=== PATIENT | female | born 1955 | race African-American/Black ===

== ENCOUNTER 2019-08-15 17:43 | Emergency (ER) | payer SELFPAY ==
[2019-08-15] MEDS ORDERED: Sulfameth/Trimethoprim DS 800-160mg TAB ONE (19:12)
[2019-08-15] MEDS ORDERED: Acetaminophen 500 MG TAB ONE (19:12)
== END 2019-08-15 19:22 | disposition home or self-care (01) ==
LOC: MADERS 17:43
DX: L02.31 Cutaneous abscess of buttock (principal); E11.9 Type 2 diabetes mellitus without complications; E78.5 Hyperlipidemia, unspecified; I10 Essential (primary) hypertension; E05.90 Thyrotoxicosis, unspecified without thyrotoxic crisis or storm; Z79.4 Long term (current) use of insulin; Z79.899 Other long term (current) drug therapy
CPT/HCPCS: 10060

== ENCOUNTER 2019-12-29 16:35 | Emergency (ER) | payer MEDICARE, SELFPAY ==
[2019-12-29] MEDS ORDERED: Lidocaine 1% w/Epinephrine 1:100K 20 ML VIAL ONE (17:18)
[2019-12-29] MEDS ORDERED: Amoxicillin/Potassium Clav 875 MG TAB ONE (17:46)
== END 2019-12-29 17:55 | disposition home or self-care (01) ==
LOC: MADERS 16:35
DX: L02.31 Cutaneous abscess of buttock (principal); E11.9 Type 2 diabetes mellitus without complications; E05.90 Thyrotoxicosis, unspecified without thyrotoxic crisis or storm; E78.5 Hyperlipidemia, unspecified; I10 Essential (primary) hypertension; Z79.4 Long term (current) use of insulin; Z79.899 Other long term (current) drug therapy
CPT/HCPCS: 46050

== ENCOUNTER 2020-06-14 15:56 | Outpatient (CLI) | payer MEDICARE ==
--- NOTE | 2020-06-14 16:32 | RAD ---
Lumbar spine 3 views HISTORY: Back pain with radiculopathy. FINDINGS: There are 5 lumbar type vertebrae. Pedicles are intact. Vertebral body heights and alignmen t are maintained. Prominent osteophytosis throughout the facets of the lumbar spine and the vertebral bodies of the tho racolumbar spine. Degenerative changes sacroiliac joints are also evident. Oval areas of dystrophic calcification projecting over the lower pelvis correlates with those seen po sterior to the uterus on CT from 05/07/2020. IMPRESSION : Degenerative changes lumbar spine. No acute osseous abnormalities are demonstrated.
[2020-06-14 20:30] LABS: #Basophils 0.1 thou/uL (0.0-0.2); #Lymphocytes 3.1 thou/uL (1.20-3.40); #Monocytes 0.6 thou/uL (0.11-0.59); #Neutrophils 2.9 thou/uL (1.40-6.50); %Basophils 1.3 % (0.0-1.0); %Eosinophils 0.6 % (0.0-10.0); %Lymphocytes 46.1 % (21.0-51.0); %Monocytes 8.7 % (0.0-10.0); %Neutrophils 43.5 % (42.0-75.0); Hemoglobin 14.8 g/dL (12.0-16.0); Mean Corpuscular HGB CONC 34.3 g/dL (32.0-36.0); Mean Corpuscular Hemoglobin 30.4 pg (27.0-31.0); Mean Corpuscular Volume 88.6 fL (78.0-98.0); Mean Platelet Volume 8.5 fL (7.4-10.4); Platelet Count 203 thou/uL (130-400); RBC Distribution Width 13.7 % (11.5-14.5); Red Blood Cell (RBC) Count 4.88 mill/uL (4.20-5.40); White Blood Cell (WBC) Count 6.7 thou/uL (4.8-10.8)
[2020-06-14 20:31] LABS: Bacteria/HPF None Seen HPF (None Seen); Bilirubin 1+ (Negative); Blood, Urine Negative (Negative); Clarity Turbid (Clear); Glucose, Urine (Dipstick) Normal (Negative); Ketone, Urine 60 mg/dL (Negative); Leukocyte 25 Leu/uL (Negative); Mucous/LPF 2+ LPF (<2+); Nitrite Negative (Negative); Protein, Urine (Dipstick) 70 mg/dL (Neg-Trace); RBC/HPF 0-3 HPF (0-3); Specific Gravity, Urine 1.028 (1.002-1.036); Urobilinogen 3 mg/dL (Less than 2); pH, Urine 5.5 (5.0-9.0)
[2020-06-14 20:33] LABS: Calcium Oxalate Crystals 2+ HPF (None Seen)
[2020-06-14 21:21] LABS: ALT (SGPT) 20 U/L (8-55); AST (SGOT) 15 U/L (5-34); Albumin 3.9 g/dL (3.4-4.8); Alkaline Phosphatase 74 U/L (40-110); Anion Gap 24 mmol/L (10-20); BUN (Urea Nitrogen) 15 mg/dL (9.8-20.1); Bilirubin, Total 1.1 mg/dL (0.2-1.2); Calc. Creatinine Clearance 0 mL/min (70-130); Calcium 9.9 mg/dL (7.8-10.44); Carbon Dioxide 18 mmol/L (23-31); Chloride 95 mmol/L (98-107); Globulin 3.6 g/dL (2.4-3.5); Glucose 196 mg/dL (80-115); Potassium 3.5 mmol/L (3.5-5.1); Protein, Total 7.5 g/dL (6.0-8.3); Sodium 133 mmol/L (136-145)
== END 2020-06-14 15:57 | disposition home or self-care (01) ==
LOC: MADRAD 15:56
PROVIDERS: ATTEND Family Medicine
DX: K29.00 Acute gastritis without bleeding (principal); R00.0 Tachycardia, unspecified; M47.816 Spondylosis without myelopathy or radiculopathy, lumbar region
CPT/HCPCS: 36415; 72100; 80053; 81001; 84443; 85025; 87086; 93005; 93010

== ENCOUNTER 2020-06-30 10:55 | Emergency (ER) | payer MEDICARE ==
[2020-06-30] MEDS ORDERED: Sodium Chloride 0.9% 2,000 ML ONE (11:27)
[2020-06-30 11:44] LABS: #Basophils 0.1 thou/uL (0.0-0.2); #Lymphocytes 2.5 thou/uL (1.20-3.40); #Monocytes 0.6 thou/uL (0.11-0.59); #Neutrophils 2.3 thou/uL (1.40-6.50); %Basophils 2.2 % (0.0-1.0); %Eosinophils 0.7 % (0.0-10.0); %Lymphocytes 44.6 % (21.0-51.0); %Monocytes 11.1 % (0.0-10.0); %Neutrophils 41.5 % (42.0-75.0); Hemoglobin 13.8 g/dL (12.0-16.0); Mean Corpuscular HGB CONC 31.9 g/dL (32.0-36.0); Mean Corpuscular Hemoglobin 28.2 pg (27.0-31.0); Mean Corpuscular Volume 88.3 fL (78.0-98.0); Mean Platelet Volume 7.8 fL (7.4-10.4); Platelet Count 204 thou/uL (130-400); RBC Distribution Width 13.6 % (11.5-14.5); Red Blood Cell (RBC) Count 4.89 mill/uL (4.20-5.40); White Blood Cell (WBC) Count 5.6 thou/uL (4.8-10.8)
[2020-06-30 12:21] LABS: BUN (Urea Nitrogen) 8 mg/dL (9.8-20.1); Calc. Creatinine Clearance 0 mL/min (70-130); Carbon Dioxide 20 mmol/L (23-31); Chloride 95 mmol/L (98-107); Glucose 111 mg/dL (80-115); Sodium 133 mmol/L (136-145)
[2020-06-30 12:25] LABS: Albumin 3.8 g/dL (3.4-4.8); Bilirubin, Total 1.1 mg/dL (0.2-1.2); Calcium 9.3 mg/dL (7.8-10.44)
[2020-06-30 12:26] LABS: Alkaline Phosphatase 53 U/L (40-110)
[2020-06-30 12:30] LABS: Anion Gap 21 mmol/L (10-20); Potassium 3.3 mmol/L (3.5-5.1)
[2020-06-30 12:31] LABS: ALT (SGPT) 21 U/L (8-55); Globulin 3.3 g/dL (2.4-3.5); Protein, Total 7.1 g/dL (5.8-8.1)
[2020-06-30 12:34] LABS: AST (SGOT) 21 U/L (5-34)
[2020-06-30] MEDS ORDERED: Potassium Chloride 10 MEQ TAB ONE (13:03)
== END 2020-06-30 13:12 | disposition home or self-care (01) ==
LOC: MADERS 10:55
DX: E86.0 Dehydration (principal); E86.1 Hypovolemia; R10.84 Generalized abdominal pain; E11.9 Type 2 diabetes mellitus without complications; E78.5 Hyperlipidemia, unspecified; I10 Essential (primary) hypertension
CPT/HCPCS: 80053; 85025; 99284; J7050

== ENCOUNTER 2020-07-18 20:17 | Emergency (ER) | payer MEDICARE ==
[2020-07-18] MEDS ORDERED: Sodium Chloride 0.9% 1,000 ML ONE ×2 (21:39→22:59)
[2020-07-18 21:54] LABS: #Basophils 0.2 thou/uL (0.0-0.2); #Eosinphils 0.1 thou/uL (0.0-0.7); #Lymphocytes 2.6 thou/uL (1.20-3.40); #Monocytes 0.7 thou/uL (0.11-0.59); #Neutrophils 2.7 thou/uL (1.40-6.50); %Basophils 2.5 % (0.0-1.0); %Eosinophils 0.9 % (0.0-10.0); %Lymphocytes 41.9 % (21.0-51.0); %Monocytes 10.9 % (0.0-10.0); %Neutrophils 43.8 % (42.0-75.0); Hemoglobin 14.5 g/dL (12.0-16.0); Mean Corpuscular HGB CONC 32.4 g/dL (32.0-36.0); Mean Corpuscular Hemoglobin 28.4 pg (27.0-31.0); Mean Corpuscular Volume 87.7 fL (78.0-98.0); Mean Platelet Volume 7.7 fL (7.4-10.4); Platelet Count 215 thou/uL (130-400); RBC Distribution Width 14.2 % (11.5-14.5); Red Blood Cell (RBC) Count 5.09 mill/uL (4.20-5.40); White Blood Cell (WBC) Count 6.2 thou/uL (4.8-10.8)
[2020-07-18 23:14] LABS: ALT (SGPT) 25 U/L (8-55); AST (SGOT) 25 U/L (5-34); Albumin 3.9 g/dL (3.4-4.8); Alkaline Phosphatase 63 U/L (40-110); Anion Gap 23 mmol/L (10-20); BUN (Urea Nitrogen) 7 mg/dL (9.8-20.1); Bilirubin, Total 0.8 mg/dL (0.2-1.2); Calc. Creatinine Clearance 0 mL/min (70-130); Calcium 10.2 mg/dL (7.8-10.44); Carbon Dioxide 20 mmol/L (23-31); Chloride 98 mmol/L (98-107); Globulin 3.8 g/dL (2.4-3.5); Glucose 181 mg/dL (80-115); Lipase 13 U/L (8-78); Protein, Total 7.7 g/dL (6.0-8.3); Sodium 138 mmol/L (136-145)
[2020-07-18 23:23] LABS: Potassium 2.9 mmol/L (3.5-5.1)
[2020-07-19] MEDS ORDERED: Sodium Chloride 0.9% 1,000 ML ONE (00:02)
[2020-07-19] MEDS ORDERED: Potassium Chloride 10 MEQ TAB ONE (00:03)
[2020-07-19] MEDS ORDERED: Potassium Chloride 10 MEQ/100 ML PREMIX BAG ONE (00:03)
[2020-07-19 00:25] LABS: ALT (SGPT) 22 U/L (8-55); AST (SGOT) 20 U/L (5-34); Albumin 3.7 g/dL (3.4-4.8); Alkaline Phosphatase 58 U/L (40-110); Anion Gap 19 mmol/L (10-20); BUN (Urea Nitrogen) 6 mg/dL (9.8-20.1); Bilirubin, Total 0.8 mg/dL (0.2-1.2); Calc. Creatinine Clearance 0 mL/min (70-130); Calcium 9.3 mg/dL (7.8-10.44); Carbon Dioxide 21 mmol/L (23-31); Chloride 103 mmol/L (98-107); Globulin 3.4 g/dL (2.4-3.5); Glucose 135 mg/dL (80-115); Protein, Total 7.1 g/dL (6.0-8.3); Sodium 140 mmol/L (136-145)
[2020-07-19 00:30] LABS: Clarity Clear (Clear); Specific Gravity, Urine 1.017 (1.002-1.036); pH, Urine 5.5 (5.0-9.0)
[2020-07-19 00:31] LABS: Glucose, Urine (Dipstick) Negative (Negative); Ketone, Urine 40 mg/dL (Negative); Leukocyte Negative (Negative); Nitrite Negative (Negative); Protein, Urine (Dipstick) 30 mg/dL (Neg-Trace); Urobilinogen 0.2 mg/dL (Less than 2)
[2020-07-19 00:32] LABS: Bilirubin Large (Negative); Blood, Urine Negative (Negative)
[2020-07-19 00:35] LABS: Potassium 2.8 mmol/L (3.5-5.1)
[2020-07-19 00:39] LABS: Mucous/LPF 1+ LPF (<2+); RBC/HPF 0-3 HPF (0-3); Squamous Epithelial 0-3 HPF (0-3); WBC/HPF 0-3 HPF (0-3)
== END 2020-07-19 00:52 | disposition short-term general hospital (02) ==
LOC: MADERS 20:17
DX: E11.65 Type 2 diabetes mellitus with hyperglycemia (principal); E78.5 Hyperlipidemia, unspecified; I10 Essential (primary) hypertension; E87.6 Hypokalemia; R00.0 Tachycardia, unspecified; E03.9 Hypothyroidism, unspecified
CPT/HCPCS: 71045; 80053; 81003; 81015; 83605; 83690; 84443; 84484; 85025; 93005; 96365; J3480; J7050

== ENCOUNTER 2020-08-08 18:24 | Emergency (ER) | payer MEDICARE ==
[2020-08-08] MEDS ORDERED: Sodium Chloride 0.9% 2,000 ML ONE (19:15)
[2020-08-08 19:37] LABS: #Basophils 0.2 thou/uL (0.0-0.2); #Eosinphils 0.1 thou/uL (0.0-0.7); #Lymphocytes 2.6 thou/uL (1.20-3.40); #Monocytes 0.9 thou/uL (0.11-0.59); %Basophils 2.4 % (0.0-1.0); %Eosinophils 0.9 % (0.0-10.0); %Lymphocytes 34.1 % (21.0-51.0); %Monocytes 11.4 % (0.0-10.0); %Neutrophils 51.2 % (42.0-75.0); Hemoglobin 13.1 g/dL (12.0-16.0); Mean Corpuscular HGB CONC 31.4 g/dL (32.0-36.0); Mean Corpuscular Hemoglobin 28.2 pg (27.0-31.0); Mean Corpuscular Volume 89.7 fL (78.0-98.0); Mean Platelet Volume 7.4 fL (7.4-10.4); Platelet Count 225 thou/uL (130-400); RBC Distribution Width 14.6 % (11.5-14.5); Red Blood Cell (RBC) Count 4.65 mill/uL (4.20-5.40); White Blood Cell (WBC) Count 7.7 thou/uL (4.8-10.8)
[2020-08-08 19:49] LABS: ALT (SGPT) 17 U/L (8-55); AST (SGOT) 17 U/L (5-34); Albumin 3.6 g/dL (3.4-4.8); Alkaline Phosphatase 61 U/L (40-110); Anion Gap 18 mmol/L (10-20); BUN (Urea Nitrogen) 12 mg/dL (9.8-20.1); Calc. Creatinine Clearance 0 mL/min (70-130); Calcium 9.5 mg/dL (7.8-10.44); Carbon Dioxide 24 mmol/L (23-31); Chloride 101 mmol/L (98-107); Globulin 3.5 g/dL (2.4-3.5); Glucose 173 mg/dL (80-115); Magnesium 1.6 mg/dL (1.6-2.6); Potassium 3.5 mmol/L (3.5-5.1); Protein, Total 7.1 g/dL (5.8-8.1); Sodium 139 mmol/L (136-145)
== END 2020-08-08 20:35 | disposition home or self-care (01) ==
LOC: MADERS 18:24
DX: R13.10 Dysphagia, unspecified (principal); E11.9 Type 2 diabetes mellitus without complications; Z79.4 Long term (current) use of insulin; E05.90 Thyrotoxicosis, unspecified without thyrotoxic crisis or storm; E78.5 Hyperlipidemia, unspecified; I10 Essential (primary) hypertension
CPT/HCPCS: 80053; 83735; 85025; 99284; J7050